=== PATIENT | female | born 1940 | race Caucasian/White ===

== ENCOUNTER → 2018-02-05 11:15 | Outpatient (CLI) | payer MEDICARE, OTHER, SELFPAY ==
[2018-02-05 12:32] LABS: Hemoglobin A1C% w Est Avg Glu 5.7 % (4.0-6.0)
[2018-02-05 12:33] LABS: HEMOLYSIS 21 (0-50); Potassium 4.9 mmol/L (3.4-5.1)
[2018-02-05 12:34] LABS: BUN Creatinine Ratio 30.8 (6-22); Blood Urea Nitrogen 37 mg/dL (7-17); Calcium 9.4 mg/dL (8.4-10.2); Carbon Dioxide 19 mmol/L (22-32); Chloride 108 mmol/L (98-107); Estimated Glomerular Filt Rate 43.8 mL/min (>60); Glucose 95 mg/dL (80-110); Sodium 139 mmol/L (137-145)
[2018-02-05 12:42] LABS: Add Manual Diff / Slide Review NO; Eosinophils Percent Auto 2.3 % (2-4); Hematocrit 35.5 % (36-46); Hemoglobin 11.7 g/dL (12.0-16.0); Lymphocytes Percent Auto 28.2 % (25-40); Mean Corpuscular HGB Conc 32.9 % (30-36); Mean Corpuscular Hemoglobin 29.6 PG (26-34); Mean Corpuscular Volume 89.9 fL (80-100); Monocytes Percent Auto 8.7 % (3-14); Neutrophils Absolute Auto 4900 /uL (3000-5900); Neutrophils Percent Auto 59.8 % (50-75); Platelet Count 237 X10^3/uL (150-400); Red Blood Cell Count 3.95 X10^6/uL (4.0-5.2); Red Cell Distribution Width 15.1 % (11.6-14.8); White Blood Cell Count 8.1 X10^3/uL (4.5-11.0)
== END ==
PROVIDERS: PCP Physician Assistant; Visit Provider Physician Assistant
DX: E11.9 Type 2 diabetes mellitus without complications (principal)
CPT/HCPCS: 36415; 80048; 83036; 85025

== ENCOUNTER → 2018-07-21 12:54 | Outpatient (CLI) | payer MEDICARE, OTHER, SELFPAY ==
[2018-07-21 13:14] LABS: Add Manual Diff / Slide Review NO; Basophils Percent Auto 1.2 % (0-2); Eosinophils Percent Auto 2.3 % (2-4); Hematocrit 35.2 % (36-46); Hemoglobin 11.4 g/dL (12.0-16.0); Lymphocytes Percent Auto 26.5 % (25-40); Mean Corpuscular HGB Conc 32.4 % (30-36); Mean Corpuscular Hemoglobin 28.9 PG (26-34); Mean Corpuscular Volume 89.2 fL (80-100); Monocytes Percent Auto 8.4 % (3-14); Neutrophils Absolute Auto 5600 /uL (3000-5900); Neutrophils Percent Auto 61.6 % (50-75); Platelet Count 253 X10^3/uL (150-400); Red Blood Cell Count 3.95 X10^6/uL (4.0-5.2); Red Cell Distribution Width 14.8 % (11.6-14.8); White Blood Cell Count 9.1 X10^3/uL (4.5-11.0)
[2018-07-21 13:27] LABS: Hemoglobin A1C% w Est Avg Glu 5.9 % (4.0-6.0)
[2018-07-21 14:02] LABS: Alanine Aminotransferase 21 IU/L (9-52); Albumin 4.4 g/dL (3.5-5.0); Albumin Globulin Ratio 1.2 (1.0-2.8); Alkaline Phosphatase 66 U/L (38-126); Aspartate Aminotransferase 21 IU/L (14-36); BUN Creatinine Ratio 23.1 (6-22); Bilirubin Total 0.3 mg/dL (0.2-1.3); Blood Urea Nitrogen 30 mg/dL (7-17); Calcium 9.5 mg/dL (8.4-10.2); Carbon Dioxide 21 mmol/L (22-32); Chloride 109 mmol/L (98-107); Cholesterol 252 mg/dL (140-199); Estimated Glomerular Filt Rate 39.9 mL/min (>60); Globulin 3.6 g/dL (1.7-4.1); Glucose 108 mg/dL (80-110); HDL Cholesterol 53 mg/dL (40-60); HEMOLYSIS < 15 (0-50); LDL Cholesterol Calculated 134 mg/dL (<100); Potassium 5.3 mmol/L (3.4-5.1); Sodium 144 mmol/L (137-145); Triglycerides 323 mg/dL (35-150)
== END ==
PROVIDERS: PCP Physician Assistant; Visit Provider Physician Assistant
DX: E78.5 Hyperlipidemia, unspecified (principal); I10 Essential (primary) hypertension; E11.9 Type 2 diabetes mellitus without complications
CPT/HCPCS: 36415; 80053; 80061; 83036; 85025

== ENCOUNTER → 2019-07-01 18:24 | Outpatient (ROUT) | payer MEDICARE, OTHER, SELFPAY ==
[2019-07-01 18:46] LABS: Alanine Aminotransferase 17 IU/L (<35); Albumin 4.2 g/dL (3.5-5.0); Albumin Globulin Ratio 1.4 (1.0-2.8); Alkaline Phosphatase 70 U/L (38-126); Aspartate Aminotransferase 21 IU/L (14-36); BUN Creatinine Ratio 26.7 (6-22); Bilirubin Total 0.4 mg/dL (0.2-1.3); Blood Urea Nitrogen 40 mg/dL (7-17); Carbon Dioxide 20 mmol/L (22-32); Chloride 112 mmol/L (98-107); Cholesterol 287 mg/dL (140-199); Estimated Glomerular Filt Rate 33.8 mL/min (>60); Globulin 3.1 g/dL (1.7-4.1); Glucose 102 mg/dL (80-110); HDL Cholesterol 49 mg/dL (40-60); HEMOLYSIS < 15 (0-50); LDL Cholesterol Calculated 174 mg/dL (<100); Potassium 4.9 mmol/L (3.4-5.1); Sodium 142 mmol/L (137-145); Total Protein 7.3 g/dL (6.3-8.2); Triglycerides 320 mg/dL (35-150)
[2019-07-01 18:47] LABS: Add Manual Diff / Slide Review NO; Basophils Absolute Auto 100 /uL (0-100); Eosinophils Absolute Auto 200 /uL (0-450); Eosinophils Percent Auto 2.4 % (2-4); Hematocrit 34.5 % (36-46); Hemoglobin 11.3 g/dL (12.0-16.0); Lymphocytes Absolute Auto 2400 /uL (1100-4500); Lymphocytes Percent Auto 26.5 % (25-40); Mean Corpuscular HGB Conc 32.8 % (30-36); Mean Corpuscular Hemoglobin 29.3 PG (26-34); Mean Corpuscular Volume 89.4 fL (80-100); Monocytes Absolute Auto 700 /uL (0-900); Monocytes Percent Auto 8.1 % (3-14); Neutrophils Absolute Auto 5700 /uL (1500-7000); Platelet Count 246 X10^3/uL (150-400); Red Blood Cell Count 3.86 X10^6/uL (4.0-5.2); Red Cell Distribution Width 14.9 % (11.6-14.8); White Blood Cell Count 9.1 X10^3/uL (4.5-11.0)
[2019-07-01 18:58] LABS: Erythrocyte Sedimentation Rate 65 MM/HR (0-20)
[2019-07-01 19:23] LABS: Hemoglobin A1C% w Est Avg Glu 5.7 % (4.0-6.0)
== END ==
PROVIDERS: PCP Physician Assistant; Visit Provider Physician Assistant
DX: E78.5 Hyperlipidemia, unspecified (principal); E11.9 Type 2 diabetes mellitus without complications; I10 Essential (primary) hypertension; M79.10 Myalgia, unspecified site
CPT/HCPCS: 80053; 80061; 83036; 85025; 85651; 86140

== ENCOUNTER → 2019-08-18 15:19 | Outpatient (ROUT) | payer MEDICARE, OTHER, SELFPAY ==
[2019-08-18 15:39] LABS: Add Manual Diff / Slide Review NO; Basophils Absolute Auto 100 /uL (0-100); Basophils Percent Auto 1.2 % (0-2); Eosinophils Absolute Auto 200 /uL (0-450); Eosinophils Percent Auto 2.1 % (2-4); Hematocrit 34.9 % (36-46); Hemoglobin 11.5 g/dL (12.0-16.0); Lymphocytes Absolute Auto 3000 /uL (1100-4500); Lymphocytes Percent Auto 29.4 % (25-40); Mean Corpuscular HGB Conc 33.1 % (30-36); Mean Corpuscular Hemoglobin 29.6 PG (26-34); Mean Corpuscular Volume 89.4 fL (80-100); Monocytes Absolute Auto 800 /uL (0-900); Monocytes Percent Auto 7.6 % (3-14); Neutrophils Absolute Auto 6000 /uL (1500-7000); Neutrophils Percent Auto 59.7 % (50-75); Platelet Count 241 X10^3/uL (150-400); Red Cell Distribution Width 15.1 % (11.6-14.8); White Blood Cell Count 10.1 X10^3/uL (4.5-11.0)
[2019-08-18 15:46] LABS: HEMOLYSIS < 15 (0-50); Iron 78 ug/dL (37-170)
[2019-08-18 15:47] LABS: Alanine Aminotransferase 18 IU/L (<35); Albumin 4.2 g/dL (3.5-5.0); Albumin Globulin Ratio 1.4 (1.0-2.8); Alkaline Phosphatase 69 U/L (38-126); Aspartate Aminotransferase 21 IU/L (14-36); Bilirubin Total 0.5 mg/dL (0.2-1.3); Blood Urea Nitrogen 35 mg/dL (7-17); Calcium 9.5 mg/dL (8.4-10.2); Carbon Dioxide 20 mmol/L (22-32); Chloride 108 mmol/L (98-107); Estimated Glomerular Filt Rate 36.6 mL/min (>60); Glucose 110 mg/dL (80-110); HEMOLYSIS < 15 (0-50); Potassium 4.5 mmol/L (3.4-5.1); Sodium 139 mmol/L (137-145); Total Protein 7.2 g/dL (6.3-8.2)
[2019-08-18 15:56] LABS: Percent Iron Saturation 28 % (15-50); Total Iron Binding Capacity 281 ug/dL (265-497); Transferrin 232 mg/dL (206-381)
[2019-08-18 16:22] LABS: Hemoglobin A1C% w Est Avg Glu 5.6 % (4.0-6.0)
== END ==
PROVIDERS: PCP Physician Assistant; Visit Provider Physician Assistant
DX: D50.8 Other iron deficiency anemias (principal); N17.9 Acute kidney failure, unspecified; I10 Essential (primary) hypertension; R42 Dizziness and giddiness; R11.0 Nausea; E11.9 Type 2 diabetes mellitus without complications
CPT/HCPCS: 80053; 82728; 83036; 83540; 83550; 85025

== ENCOUNTER → 2020-02-27 13:19 | Outpatient (CLI) | payer MEDICARE, OTHER, SELFPAY ==
[2020-02-27 14:36] LABS: Add Manual Diff / Slide Review NO; Basophils Absolute Auto 100 /uL (0-100); Basophils Percent Auto 0.8 % (0-2); Eosinophils Absolute Auto 200 /uL (0-450); Eosinophils Percent Auto 2.3 % (2-4); Hematocrit 34.2 % (36-46); Hemoglobin 11.3 g/dL (12.0-16.0); Lymphocytes Absolute Auto 2300 /uL (1100-4500); Lymphocytes Percent Auto 27.9 % (25-40); Mean Corpuscular Hemoglobin 29.2 PG (26-34); Mean Corpuscular Volume 88.6 fL (80-100); Monocytes Absolute Auto 700 /uL (0-900); Monocytes Percent Auto 7.9 % (3-14); Neutrophils Absolute Auto 5100 /uL (1500-7000); Neutrophils Percent Auto 61.1 % (50-75); Platelet Count 229 X10^3/uL (150-400); Red Blood Cell Count 3.86 X10^6/uL (4.0-5.2); Red Cell Distribution Width 14.5 % (11.6-14.8); White Blood Cell Count 8.4 X10^3/uL (4.5-11.0)
[2020-02-27 14:49] LABS: Hemoglobin A1C% w Est Avg Glu 5.6 % (4.0-6.0)
[2020-02-27 14:57] LABS: Alanine Aminotransferase 14 IU/L (<35); Albumin 4.2 g/dL (3.5-5.0); Albumin Globulin Ratio 1.4 (1.0-2.8); Alkaline Phosphatase 68 U/L (38-126); Aspartate Aminotransferase 18 IU/L (14-36); BUN Creatinine Ratio 21.7 (6-22); Bilirubin Total 0.5 mg/dL (0.2-1.3); Blood Urea Nitrogen 31 mg/dL (7-17); Calcium 9.7 mg/dL (8.4-10.2); Carbon Dioxide 16 mmol/L (22-32); Chloride 111 mmol/L (98-107); Cholesterol 275 mg/dL (140-199); Estimated Glomerular Filt Rate 35.6 mL/min (>60); Globulin 2.9 g/dL (1.7-4.1); Glucose 90 mg/dL (80-110); HDL Cholesterol 45 mg/dL (40-60); HEMOLYSIS < 15 (0-50); LDL Cholesterol Calculated 158 mg/dL (<100); Potassium 4.7 mmol/L (3.4-5.1); Sodium 137 mmol/L (137-145); Total Protein 7.1 g/dL (6.3-8.2); Triglycerides 359 mg/dL (35-150)
[2020-02-27 15:26] LABS: TSH w/ Reflex to FT4 0.14 uIU/mL (0.47-4.68)
[2020-02-27 15:56] LABS: Free T4, Direct Thyroxine 0.78 ng/dL (0.78-2.19)
== END ==
PROVIDERS: PCP Physician Assistant; Referring Provider Physician Assistant; Visit Provider Physician Assistant
DX: F32.9 Major depressive disorder, single episode, unspecified (principal); E11.9 Type 2 diabetes mellitus without complications; E78.2 Mixed hyperlipidemia; R53.83 Other fatigue
CPT/HCPCS: 36415; 80053; 80061; 83036; 84439; 84443; 85025

== ENCOUNTER → 2020-03-08 13:39 | Outpatient (CLI) | payer MEDICARE, OTHER, SELFPAY ==
[2020-03-08 15:54] LABS: TSH w/ Reflex to FT4 0.06 uIU/mL (0.47-4.68)
[2020-03-08 16:59] LABS: Free T4, Direct Thyroxine 0.84 ng/dL (0.78-2.19)
== END ==
PROVIDERS: PCP Physician Assistant; Referring Provider Physician Assistant; Visit Provider Physician Assistant
DX: R79.89 Other specified abnormal findings of blood chemistry (principal); R94.6 Abnormal results of thyroid function studies
CPT/HCPCS: 36415; 84439; 84443; 84481

== ENCOUNTER → 2020-03-26 15:34 | Outpatient (CLI) | payer MEDICARE, OTHER, SELFPAY ==
[2020-03-26 17:28] LABS: Free T3, Triiodothyronine Free 2.64 pg/mL (2.77-5.27)
[2020-03-26 17:42] LABS: TSH w/ Reflex to FT4 2.97 uIU/mL (0.47-4.68)
== END ==
PROVIDERS: PCP Physician Assistant; Referring Provider Physician Assistant; Visit Provider Physician Assistant
DX: R79.89 Other specified abnormal findings of blood chemistry (principal); I10 Essential (primary) hypertension
CPT/HCPCS: 36415; 84443; 84481

== ENCOUNTER → 2021-04-30 09:44 | Outpatient (CLI) | payer MEDICARE, OTHER, SELFPAY | PROVIDERS: PCP Physician Assistant; Referring Provider Physician Assistant; Visit Provider Physician Assistant | DX: M81.0 Age-related osteoporosis without current pathological fracture (principal) | CPT/HCPCS: 77080 ==

== ENCOUNTER → 2021-12-26 14:43 | Outpatient (CLI) | payer MEDICARE, OTHER, SELFPAY ==
[2021-12-26 15:45] LABS: Hematocrit 32.8 % (36-46); Hemoglobin 10.8 g/dL (12.0-16.0); Mean Corpuscular Volume 87.7 fL (80-100); Platelet Count 259 X10^3/uL (150-400); Red Blood Cell Count 3.74 X10^6/uL (4.0-5.2); Red Cell Distribution Width 15.3 % (11.6-14.8); White Blood Cell Count 9.3 X10^3/uL (4.5-11.0)
[2021-12-26 15:56] LABS: Hemoglobin A1C% w Est Avg Glu 5.9 % (4.0-6.0)
[2021-12-26 15:58] LABS: Alanine Aminotransferase 20 IU/L (<35); Albumin 4.4 g/dL (3.5-5.0); Albumin Globulin Ratio 1.2 (1.0-2.8); Alkaline Phosphatase 65 U/L (38-126); Aspartate Aminotransferase 23 IU/L (14-36); BUN Creatinine Ratio 19.9 (6-22); Bilirubin Total 0.4 mg/dL (0.2-1.3); Blood Urea Nitrogen 33 mg/dL (7-17); Calcium 8.9 mg/dL (8.4-10.2); Carbon Dioxide 17 mmol/L (22-32); Chloride 110 mmol/L (98-107); Estimated Glomerular Filt Rate 31 mL/min (>60); Globulin 3.6 g/dL (1.7-4.1); Glucose 109 mg/dL (80-110); HEMOLYSIS < 15 (0-50); Potassium 4.6 mmol/L (3.4-5.1); Sodium 140 mmol/L (137-145)
[2021-12-26 16:14] LABS: HEMOLYSIS < 15 (0-50); Iron 50 ug/dL (37-170)
[2021-12-26 16:25] LABS: Percent Iron Saturation 17 % (15-50); Total Iron Binding Capacity 291 ug/dL (265-497); Transferrin 233 mg/dL (206-381)
[2021-12-26 16:28] LABS: Ferritin 62 ng/mL (11-264)
[2021-12-26 16:46] LABS: TSH w/ Reflex to FT4 0.17 uIU/mL (0.47-4.68)
[2021-12-26 17:15] LABS: Free T4, Direct Thyroxine 1.09 ng/dL (0.78-2.19)
== END ==
PROVIDERS: PCP Internal Medicine; Referring Provider Internal Medicine; Visit Provider Internal Medicine
DX: D50.9 Iron deficiency anemia, unspecified (principal); E11.69 Type 2 diabetes mellitus with other specified complication; E78.2 Mixed hyperlipidemia; I10 Essential (primary) hypertension
CPT/HCPCS: 36415; 80053; 82728; 83036; 83540; 83550; 84439; 84443; 85027

== ENCOUNTER → 2022-07-31 15:32 | Outpatient (CLI) | payer MEDICARE, OTHER, SELFPAY ==
[2022-07-31 16:18] LABS: Hematocrit 34.4 % (36-46); Hemoglobin 11.3 g/dL (12.0-16.0); Mean Corpuscular HGB Conc 32.8 % (30-36); Mean Corpuscular Hemoglobin 28.7 PG (26-34); Mean Corpuscular Volume 87.5 fL (80-100); Platelet Count 239 X10^3/uL (150-400); Red Blood Cell Count 3.93 X10^6/uL (4.0-5.2); Red Cell Distribution Width 15.4 % (11.6-14.8); White Blood Cell Count 9.2 X10^3/uL (4.5-11.0)
[2022-07-31 16:28] LABS: Hemoglobin A1C% w Est Avg Glu 5.6 % (4.0-6.0)
[2022-07-31 16:41] LABS: Alanine Aminotransferase 24 IU/L (<35); Albumin 4.3 g/dL (3.5-5.0); Albumin Globulin Ratio 1.1 (1.0-2.8); Alkaline Phosphatase 78 U/L (38-126); Aspartate Aminotransferase 24 IU/L (14-36); Bilirubin Total 0.5 mg/dL (0.2-1.3); Blood Urea Nitrogen 30 mg/dL (7-17); Calcium 9.6 mg/dL (8.4-10.2); Carbon Dioxide 23 mmol/L (22-32); Chloride 106 mmol/L (98-107); Cholesterol 245 mg/dL (140-199); Estimated Glomerular Filt Rate 27 mL/min (>60); Globulin 3.9 g/dL (1.7-4.1); Glucose 103 mg/dL (80-110); HDL Cholesterol 70 mg/dL (40-60); HEMOLYSIS < 15 (0-50); LDL Cholesterol Calculated 122 mg/dL (<100); Potassium 5.3 mmol/L (3.4-5.1); Sodium 141 mmol/L (137-145); Total Protein 8.2 g/dL (6.3-8.2); Triglycerides 263 mg/dL (35-150)
[2022-07-31 16:51] LABS: HEMOLYSIS < 15 (0-50); Iron 54 ug/dL (37-170)
[2022-07-31 17:02] LABS: Percent Iron Saturation 16 % (15-50); Total Iron Binding Capacity 332 ug/dL (265-497); Transferrin 282 mg/dL (206-381)
[2022-07-31 17:14] LABS: Ferritin 46 ng/mL (11-264)
[2022-07-31 17:24] LABS: TSH w/ Reflex to FT4 2.54 uIU/mL (0.47-4.68)
[2022-07-31 18:33] LABS: Creatinine Urine Random 111.2 mg/dL
[2022-07-31 18:40] LABS: Microalbumi Creatinin Ratio Ur 45.8 ug/mg CR (<30); Microalbumin Urine Random 5.1 mg/dL (0-1.6)
[2022-08-01 07:17] LABS: Parathyroid Hormone Int 47 pg/mL (15-65)
== END ==
PROVIDERS: PCP Internal Medicine; Referring Provider Internal Medicine; Visit Provider Internal Medicine
DX: E11.69 Type 2 diabetes mellitus with other specified complication (principal); D50.9 Iron deficiency anemia, unspecified; E78.2 Mixed hyperlipidemia; N18.32 Chronic kidney disease, stage 3b; E78.5 Hyperlipidemia, unspecified; R79.89 Other specified abnormal findings of blood chemistry; E55.9 Vitamin D deficiency, unspecified
CPT/HCPCS: 36415; 80053; 80061; 82043; 82306; 82570; 82728; 83036; 83540; 83550; 83970; 84443; 85027

== ENCOUNTER → 2022-10-23 16:31 | Outpatient (CLI) | payer MEDICARE, OTHER, SELFPAY ==
--- NOTE | 2022-10-23 16:37 | DI.RAD.S_ITS ---
PROCEDURE: XR SHOULDER LT MIN 2V INDICATIONS: Bilateral shoulder pain TECHNIQUE: 3 views of the shoulder were acquired. COMPARISON: None. FINDINGS: Bones: No fractures or dislocations. No suspicious bony lesions. Visualized ribs appear intact. Glenohumeral and acromioclavicular joint space narrowing with associated osteophytosis, marked about the glenohumeral joint. Soft tissues: No suspicious soft tissue calcifications. IMPRESSION: Severe glenohumeral osteoarthritis. Dictated by: Carl Mccollum M.D. on 10/24/2022 at 9:29 Approved by: Carl Mccollum M.D. on 10/24/2022 at 9:30
--- NOTE | 2022-10-23 16:37 | DI.RAD.S_ITS ---
PROCEDURE: XR SHOULDER RT MIN 2V INDICATIONS: Bilateral shoulder pain TECHNIQUE: 3 views of the shoulder were acquired. COMPARISON: None. FINDINGS: Bones: No fractures or dislocations. No suspicious bony lesions. Visualized ribs appear intact. Glenohumeral and acromioclavicular joint space narrowing with associated osteophytosis. Soft tissues: No suspicious soft tissue calcifications. 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 Dictated by: Carl Mccollum M.D. on 10/24/2022 at 9:27 Approved by: Carl Mccollum M.D. on 10/24/2022 at 9:29
== END ==
PROVIDERS: PCP Internal Medicine; Referring Provider Internal Medicine; Visit Provider Internal Medicine
DX: M19.011 Primary osteoarthritis, right shoulder (principal); M19.012 Primary osteoarthritis, left shoulder; M25.511 Pain in right shoulder; M25.512 Pain in left shoulder
CPT/HCPCS: 73030

== ENCOUNTER → 2023-01-07 16:32 | Outpatient (CLI) | payer MEDICARE, OTHER, SELFPAY ==
[2023-01-07 18:05] LABS: BUN Creatinine Ratio 21.3 (6-22); Blood Urea Nitrogen 37 mg/dL (7-17); Calcium 9.2 mg/dL (8.4-10.2); Carbon Dioxide 18 mmol/L (22-32); Chloride 106 mmol/L (98-107); Estimated Glomerular Filt Rate 29 mL/min (>60); Glucose 100 mg/dL (80-110); HEMOLYSIS 20 (0-50); Potassium 4.9 mmol/L (3.4-5.1); Sodium 137 mmol/L (137-145)
[2023-01-08 06:04] LABS: x Labcorp Estim. Avg Glu (eAG) 126 mg/dL (.)
== END ==
PROVIDERS: PCP Internal Medicine; Referring Provider Internal Medicine; Visit Provider Internal Medicine
DX: E78.5 Hyperlipidemia, unspecified (principal); N18.32 Chronic kidney disease, stage 3b; E11.69 Type 2 diabetes mellitus with other specified complication
CPT/HCPCS: 36415; 80048; 83036

== ENCOUNTER → 2023-04-27 11:34 | Outpatient (CLI) | payer MEDICARE, OTHER, SELFPAY ==
[2023-04-27 12:05] LABS: Hemoglobin A1C% w Est Avg Glu 5.6 % (4.0-6.0)
[2023-04-27 12:14] LABS: BUN Creatinine Ratio 18.5 (6-22); Blood Urea Nitrogen 34 mg/dL (7-17); Calcium 8.8 mg/dL (8.4-10.2); Carbon Dioxide 18 mmol/L (22-32); Chloride 111 mmol/L (98-107); Estimated Glomerular Filt Rate 27 mL/min (>60); Glucose 117 mg/dL (80-110); HEMOLYSIS < 15 (0-50); Potassium 4.6 mmol/L (3.4-5.1); Sodium 139 mmol/L (137-145)
== END ==
PROVIDERS: PCP Internal Medicine; Referring Provider Internal Medicine; Visit Provider Internal Medicine
DX: E11.69 Type 2 diabetes mellitus with other specified complication (principal); E78.5 Hyperlipidemia, unspecified; I87.2 Venous insufficiency (chronic) (peripheral); N18.32 Chronic kidney disease, stage 3b
CPT/HCPCS: 36415; 80048; 83036

== ENCOUNTER → 2023-05-14 15:59 | Outpatient (CLI) | payer MEDICARE, OTHER, SELFPAY ==
--- NOTE | 2023-05-14 16:03 | DI.ECHO.S_ITS ---
[facility] +---------+ : : [id number] : : : : [id number] : : : : Phone: [phone]+ Echocardiogram Report + + :Name: YOGESH DEVRIES Study Date: 05/14/2023 Height: 66 in : :[facility] ReadingLocation: Weight: 251 lb : : Gender: Female BSA: 2.2 m2 : :: 1940 Age: 82 yrs BP: 154/85 mmHg: :Reason For Study: Congestive Heart Failure : :Ordering Physician: LAKSHMI, : :ISELA Performed By: Joan Zurita : :Referring: ISELA MARTINS : + + Interpretation Summary The left ventricle is normal in size. Left ventricular systolic function is normal. The ejection fraction is estimated to be 60-65%. There are no obvious focal wall motion abnormalities noted but poor endocardial definition reduces the sensitivity for the detection of such. Diastolic parameters suggest a relaxation abnormality of the left ventricle, consistent with probable normal filling pressures. The right ventricle is normal in size and function. The left atrial size is normal. There is no significant valvular heart disease. The aortic root is normal size. Procedure: A two-dimensional transthoracic echocardiogram with color flow and Doppler was performed. The study quality was technically difficult. There is no prior echocardiogram noted for this patient. A contrast injection of Definity was performed to improve assessment of LV function. The patient was in normal sinus rhythm during the exam. Left Ventricle: The left ventricle is normal in size. Left ventricular systolic function is normal. The ejection fraction is estimated to be 60-65%. There are no obvious focal wall motion abnormalities noted but poor endocardial definition reduces the sensitivity for the detection of such. Diastolic parameters suggest a relaxation abnormality of the left ventricle, consistent with probable normal filling pressures. Right Ventricle: The right ventricle is normal in size and function. Atria: The left atrial size is normal. Right atrial size is normal. There is no Doppler evidence for an interatrial shunt. Mitral Valve: The mitral valve is not well visualized. There is no mitral valve stenosis. There is no mitral regurgitation noted. Aortic Valve: The aortic valve is trileaflet. The aortic valve opens well. There is mild aortic valve sclerosis. There is no aortic valve stenosis. No aortic regurgitation is present. Tricuspid Valve: The tricuspid valve is normal. There is no tricuspid stenosis. There is trace tricuspid regurgitation. Pulmonic Valve: The pulmonic valve is not well visualized. There is no pulmonic valvular stenosis. There is no pulmonic valvular regurgitation. There is no significant valvular heart disease. Great Vessels: The aortic root is normal size. The ascending aorta is normal in size. The pulmonary artery is normal size. The IVC is of normal diameter and collapses greater than 50% with a sniff. This suggests a low right atrial pressure of 3 mm Hg. Pericardium/ Pleura There is no pericardial effusion. There is no pleural effusion. MMode/2D Measurements & Calculations LVIDd: 5.3 cm LVOT diam: 1.8 cm LVIDs: 3.6 cm Ao root diam: 3.1 cm FS: 32.1 % asc Aorta Diam: 3.4 cm IVSd: 0.90 cm LVPWd: 0.90 cm LV rendon. diameter/BSA (cm/m^2): 2.4 LV sys. diameter/BSA (cm/m^2): 1.6 LA A2 area: 13.7 cm2 RA long axis: 4.8 cm LA A4 area: 15.0 cm2 RA area: 10.9 cm2 LA length (vol): 5.0 cm RA vol: 21.3 ml LA vol: 35.0 ml RA : 9.7 ml/m2 LA vol index: 15.9 ml/m2 RVD1 (basal): 3.3 cm LVAd ap4: 30.4 cm2 LVAs ap4: 14.2 cm2 LVLs ap4: 4.9 cm LVAd ap2: 23.2 cm2 TAPSE_phl: 2.0 cm LVLd ap2: 6.5 cm LVAs ap2: 9.9 cm2 LVLs ap2: 4.7 cm Doppler Measurements & Calculations Ao V2 max: 146.0 cm/sec LVOT Max Luis M: 105.5 cm/sec Ao V2 mean: 98.0 cm/sec LV V1 max P.5 mmHg Ao max P.0 mmHg LV V1 VTI: 20.7 cm Ao mean P.0 mmHg CHERYLE(I,D): 1.9 cm2 Ao V2 VTI: 28.2 cm CHERYLE(V,D): 1.8 cm2 sev ratio: 0.74 CHERYLE indexed to BSA (cm^2/m^2): 0.85 MV E max luis m: 49.3 cm/sec PA V2 max: 99.5 cm/sec MV A max luis m: 87.8 cm/sec PA V2 mean: 71.2 cm/sec MV E/A: 0.56 PA mean P.0 mmHg Med Peak E' Luis M: 8.6 cm/sec PA pr(Accel): 31.3 mmHg E/E' med: 5.7 Lat Peak E' Luis M: 7.9 cm/sec E/E' lat: 6.2 E/e' average: 6.0 MV dec time: 0.32 sec SV(LVOT): 52.7 ml AV VR_phl: 0.73 CHERYLE(VTI)/BSA_phl: 0.85 Reading Physician:06:41 PM
== END ==
PROVIDERS: PCP Internal Medicine; Referring Provider Internal Medicine; Visit Provider Internal Medicine
DX: I50.9 Heart failure, unspecified (principal)
CPT/HCPCS: 93306; Q9957

== ENCOUNTER → 2023-06-02 16:34 | Outpatient (CLI) | payer MEDICARE, OTHER, SELFPAY ==
[2023-06-02 18:22] LABS: BUN Creatinine Ratio 20.8 (6-22); Blood Urea Nitrogen 47 mg/dL (7-17); Calcium 9.6 mg/dL (8.4-10.2); Carbon Dioxide 21 mmol/L (22-32); Chloride 105 mmol/L (98-107); Estimated Glomerular Filt Rate 21 mL/min (>60); Glucose 111 mg/dL (80-110); HEMOLYSIS < 15 (0-50); Potassium 3.5 mmol/L (3.4-5.1); Sodium 137 mmol/L (137-145)
[2023-06-02 20:02] LABS: Creatinine Urine Random 109.7 mg/dL
[2023-06-02 20:06] LABS: Microalbumi Creatinin Ratio Ur 6.3 ug/mg CR (<30); Microalbumin Urine Random 0.7 mg/dL (0-1.6)
== END ==
PROVIDERS: PCP Internal Medicine; Referring Provider Internal Medicine; Visit Provider Internal Medicine
DX: I87.2 Venous insufficiency (chronic) (peripheral) (principal); I10 Essential (primary) hypertension; E11.69 Type 2 diabetes mellitus with other specified complication; E78.5 Hyperlipidemia, unspecified; N18.32 Chronic kidney disease, stage 3b
CPT/HCPCS: 36415; 80048; 82043; 82570

== ENCOUNTER → 2023-06-02 17:42 | Outpatient (CLI) | payer MEDICARE, OTHER, SELFPAY ==
--- NOTE | 2023-06-02 17:47 | DI.RAD.S_ITS ---
PROCEDURE: XR CHEST 2V INDICATIONS: shortness of breath TECHNIQUE: 2 views of the chest were acquired. COMPARISON: [facility], , CHEST 2 VIEW, 11/25/2006, 11:45. FINDINGS: Surgical changes and devices: None. Lungs and pleura: Slight appearance of increased interstitial opacities. Mediastinum: Mediastinal contours are normal. Heart size is normal. Bones and chest wall: No suspicious bony abnormalities. Soft tissues appear unremarkable. IMPRESSION: Slight increased interstitial opacities suggestive of edema. However, interstitial pneumonia cannot be definitively excluded. Dictated by: Connie Terrazas M.D. on 06/03/2023 at 16:38 Approved by: Connie Terrazas M.D. on 06/03/2023 at 16:39
== END ==
PROVIDERS: PCP Internal Medicine; Referring Provider Internal Medicine; Visit Provider Internal Medicine
DX: I87.2 Venous insufficiency (chronic) (peripheral) (principal); R06.2 Wheezing; R06.02 Shortness of breath; I10 Essential (primary) hypertension; E11.69 Type 2 diabetes mellitus with other specified complication; E78.5 Hyperlipidemia, unspecified; N18.32 Chronic kidney disease, stage 3b
CPT/HCPCS: 36415; 71046; 80048; 82043; 82570

== ENCOUNTER → 2023-06-10 14:36 | Outpatient (CLI) | payer MEDICARE, OTHER, SELFPAY ==
[2023-06-10 17:47] LABS: BUN Creatinine Ratio 22.2 (6-22); Blood Urea Nitrogen 43 mg/dL (7-17); Calcium 9.6 mg/dL (8.4-10.2); Carbon Dioxide 17 mmol/L (22-32); Chloride 106 mmol/L (98-107); Estimated Glomerular Filt Rate 26 mL/min (>60); Glucose 97 mg/dL (80-110); HEMOLYSIS < 15 (0-50); Potassium 3.9 mmol/L (3.4-5.1); Sodium 137 mmol/L (137-145)
== END ==
PROVIDERS: PCP Internal Medicine; Referring Provider Internal Medicine; Visit Provider Internal Medicine
DX: I87.2 Venous insufficiency (chronic) (peripheral) (principal); N18.32 Chronic kidney disease, stage 3b; E78.2 Mixed hyperlipidemia; I10 Essential (primary) hypertension
CPT/HCPCS: 36415; 80048

== ENCOUNTER → 2023-06-16 13:27 | Outpatient (CLI) | payer MEDICARE, OTHER, SELFPAY | PROVIDERS: PCP Internal Medicine; Referring Provider Internal Medicine; Visit Provider Internal Medicine | DX: R06.02 Shortness of breath (principal); Z87.891 Personal history of nicotine dependence; J98.8 Other specified respiratory disorders | CPT/HCPCS: 94060; 94726; 94729 ==

== ENCOUNTER → 2023-07-20 13:24 | Outpatient (CLI) | payer MEDICARE, OTHER, SELFPAY ==
--- NOTE | 2023-07-20 13:26 | DI.RAD.S_ITS ---
PROCEDURE: XR ANKLE RT MIN 3V INDICATIONS: Right ankle pain TECHNIQUE: 3 views of the ankle were acquired. COMPARISON: None. FINDINGS: Bones: No fractures or dislocations. Ankle mortise is normally aligned. No suspicious bony lesions. Corticated ossicles adjacent to the medial malleolus are noted, likely sequelae of old injury. Moderate osteoarthritic changes at the tailor navicular joint and navicular cuneiform joint. Plantar calcaneal spurring. Soft tissues: Small tibiotalar joint effusion. Calcification at the Achilles tendon insertion. Diffuse soft tissue swelling. Vascular calcifications consistent with atherosclerosis. IMPRESSION: 1. No acute bony abnormality or significant effusion. Suspect old injury in the medial malleolus. 2. Moderate osteoarthritis. 3. Calcification at the Achilles tendon insertion to calcaneus, likely secondary to enthesopathy. 4. Plantar calcaneal spurring. 5. Marked soft tissue swelling. Dictated by: Derek Pepper M.D. on 07/20/2023 at 16:39 Approved by: Derek Pepper M.D. on 07/20/2023 at 16:44
== END ==
PROVIDERS: PCP Internal Medicine; Referring Provider Nurse Practitioner Family; Visit Provider Nurse Practitioner Family
DX: M19.071 Primary osteoarthritis, right ankle and foot (principal); M25.571 Pain in right ankle and joints of right foot; M77.31 Calcaneal spur, right foot; M79.89 Other specified soft tissue disorders
CPT/HCPCS: 73610

== ENCOUNTER → 2023-08-05 15:27 | Outpatient (CLI) | payer MEDICARE, OTHER, SELFPAY ==
[2023-08-05 16:53] LABS: Aspartate Aminotransferase 22 IU/L (14-36); BUN Creatinine Ratio 21.5 (6-22); Blood Urea Nitrogen 35 mg/dL (7-17); Calcium 9.3 mg/dL (8.4-10.2); Carbon Dioxide 15 mmol/L (22-32); Chloride 109 mmol/L (98-107); Cholesterol 247 mg/dL (140-199); Estimated Glomerular Filt Rate 32 mL/min (>60); Glucose 108 mg/dL (80-110); HDL Cholesterol 51 mg/dL (40-60); HEMOLYSIS 22 (0-50); LDL Cholesterol Calculated 132 mg/dL (<100); Potassium 4.8 mmol/L (3.4-5.1); Sodium 138 mmol/L (137-145); Triglycerides 319 mg/dL (35-150)
== END ==
PROVIDERS: PCP Internal Medicine; Referring Provider Internal Medicine; Visit Provider Internal Medicine
DX: E11.69 Type 2 diabetes mellitus with other specified complication (principal); E78.5 Hyperlipidemia, unspecified; E78.2 Mixed hyperlipidemia
CPT/HCPCS: 36415; 80048; 80061; 83036; 84450

== ENCOUNTER 2023-09-11 15:04 | Emergency (ER) | payer MEDICARE, OTHER, SELFPAY ==
[2023-09-11 15:09] VITALS: BP 180/79; PULSE 85; RESP 16; TEMP 36.6; O2SAT 99; BMI 39.5
--- NOTE | 2023-09-11 16:09 | ED.BACK ---
HPI - Back Pain/Injury <Loni Garcia PA-C - Last Filed: 09/11/23 18:17> General Chief Complaint: Back Pain/Injury Stated Complaint: back pain Time Seen by Provider: 09/11/23 16:06 History of Present Illness HPI Narrative: 82-year-old female with history of chronic low back pain, CKD stage 3, polyneuropathy, hyperlipidemia, hypertension and type 2 diabetes who ambulates with a walker at home presents with concern for left low back pain just above her left hip that has been intermittent for 9 days. Patient states she woke up Thursday morning last week and noticed the pain when she twisted or change position from sitting to standing. She states that the pain has been occurring again and again with these movements and seems to be specifically related to movement. She says it is a sharp pain that is in 1 location and does not radiate anywhere. The 1st time it happened and a couple of other times when it is happened she says the pain has been intense enough that she feels mildly nauseous briefly. She states that when it occurs it usually lasts for minutes at a time and if she changes her position and goes back to sitting or standing it usually resolves completely on its own. She does describe it as quite uncomfortable when it is occurring. She has tried using tramadol from a prescription she had from last year as well as Tylenol which have taken the edge off when the pain happens. She states she sees physical therapy for her right foot and they did a little bit to help and make recommendations regarding her back recently but came in today because she feels her back symptoms are simply not improving and it has been 9 days. She denies any injury or overuse that she can think of prior to the pain beginning. She thinks it is possible that she did something in her sleep before the pain began. She says it present she has absolutely no pain because she is sitting still. She states the pain is only there occasionally with movements. She denies dizziness, lightheadedness, chest pain, numbness or tingling of her lower extremities, new weakness or one-sided weakness, also denies dysuria, urgency, frequency of urination, diarrhea, constipation, nausea, vomiting or other. Related Data Home Medications Medication Instructions Recorded Confirmed fluticasone propionate 50 2 spray intranasal DAILY 09/14/18 08/05/23 mcg/actuation nasal spray,suspension (Flonase Allergy Relief) fexofenadine 180 mg tablet 180 mg PO DAILY PRN 06/23/19 08/05/23 (Alecia Allergy) Respironics dreamstation BIPAP Not Applicable 12/26/21 08/05/23 aspirin 81 mg tablet,delayed 81 mg PO DAILY 12/26/21 08/05/23 release blood sugar diagnostic [facility] 12/26/21 08/05/23 Ultra Test strips) cyclosporine 0.05 % eye drops in a 2 drp EYE-BOTH BID #0 ea 12/26/21 08/05/23 dropperette (Restasis) ferrous fumarate 325 mg (106 mg 325 mg PO DAILY 12/26/21 08/05/23 iron) tablet lancets 30 gauge [facility]a 12/26/21 08/05/23 Plus Lancet) olopatadine 0.2 % eye drops 1 drp EYE-BOTH DAILY 12/26/21 08/05/23 (Pataday) cholecalciferol (vitamin D3) 50 50 mcg PO DAILY 07/31/22 08/05/23 mcg (2,000 unit) capsule Previous Rx's Medication Instructions Recorded Parking Permit... #1 ea 01/07/23 hydroxyzine HCl 25 mg tablet 25 mg PO DAILY #30 tabs 04/27/23 losartan 50 mg tablet 50 mg PO DAILY #90 tabs 04/27/23 sertraline 50 mg tablet 25 mg (1/2 x 50 mg) PO DAILY 04/27/23 Depression #45 tabs empagliflozin 10 mg tablet 10 mg PO DAILY #90 tabs 07/27/23 (Jardiance) tramadol 50 mg tablet 50 mg PO Q6H PRN pain #30 tabs 09/09/23 baclofen 10 mg tablet 10 mg PO TID 7 days #21 tabs 09/11/23 lidocaine 5 % topical patch 1 patch topical DAILY 15 days #15 09/11/23 ea prednisone 20 mg tablet 40 mg (2 x 20 mg) PO DAILY 5 days 09/11/23 #10 tabs Allergies Allergy/AdvReac Type Severity Reaction Status Date / Time semaglutide AdvReac Mild Nausea Verified 09/11/23 15:13 colesevelam [COLESEVELAM] AdvReac Unknown MUSCLE PAIN Verified 09/11/23 15:13 levothyroxine sodium AdvReac Unknown ITCHING Verified 09/11/23 15:13 [LEVOTHYROXINE SODIUM] rosuvastatin [ROSUVASTATIN] AdvReac Unknown MUSCLE PAIN Verified 09/11/23 15:13 simvastatin [SIMVASTATIN] AdvReac Unknown MUSCLE PAIN Verified 09/11/23 15:13 Sulfa (Sulfonamide AdvReac Unknown RASH Verified 09/11/23 15:13 Antibiotics) [SULFA (SULFONAMIDE ANTIBIOTICS)] Review of Systems <Loni Garcia PA-C - Last Filed: 09/11/23 18:17> Review of Systems Narrative: See HPI Patient History <Loni Garcia PA-C - Last Filed: 09/11/23 18:17> Medical History Tendonitis, Achilles, right Venous (peripheral) insufficiency Chronic low back pain Do not resuscitate Chronic kidney disease, stage 3b Tendonitis of both rotator cuffs Polyneuropathy, unspecified Mixed hyperlipidemia Essential hypertension DM type 2 with diabetic dyslipidemia Nocturnal hypoxemia Iron deficiency anemia Depression Asthma Obstructive sleep apnea Obesity (BMI 30-39.9) Fatigue Excessive daytime sleepiness Insomnia Chronic seasonal allergic rhinitis Social History details: 2013, no children Smoking Status: Former smoker Smoking Status: Former smoker alcohol intake frequency: holidays/special occasions only Substance Use Type: does not use Exam <Loni Garcia PA-C - Last Filed: 09/11/23 18:17> Narrative Exam Narrative: GENERAL: [82] year old patient appears stated age. Well-developed patient, in mild distress. HEAD: Atraumatic. Normocephalic. EYES: Pupils equal round and reactive. Extraocular motions intact. No scleral icterus. No injection or drainage. ENT: Nose without bleeding, purulent drainage. Airway patent. NECK: Trachea midline. Non tender CARDIOVASCULAR: Regular rate and rhythm without murmurs, gallops, or rubs. RESPIRATORY: Clear to auscultation. Breath sounds equal bilaterally. No wheezes, rales, or rhonchi. GASTROINTESTINAL: Abdomen nondistended. EXTREMITIES: With active flexion and extension at the ankle knee and hip patient has no increased back pain. Bilateral lower extremity edema of the ankles and feet without pitting, chronic for patient, more prominent on the right also chronic for patient. BACK: There is no midline spinous process tenderness. There is no flank tenderness, mild lumbar paraspinal tenderness bilaterally. There is slight tenderness with palpation over the patient's area of pain at the left upper buttock inferior to the iliac crest. Tenderness can be reproduced by pressing firmly on the tissue/gluteus muscle. Otherwise Nontender without deformity or crepitance. No flank tenderness. NEURO: AOx3. SKIN: No rash or erythema of visible areas Initial Vital Signs Initial Vital Signs: Vital Signs Temperature 97.8 F 09/11/23 15:09 Pulse Rate 85 09/11/23 15:09 Respiratory Rate 16 09/11/23 15:09 Blood Pressure 180/79 H 09/11/23 15:09 Pulse Oximetry 99 09/11/23 15:09 Oxygen Delivery Method Room Air 09/11/23 15:09 <Delfino Prado DO - Last Filed: 09/11/23 18:17> Initial Vital Signs Initial Vital Signs: Vital Signs Temperature 97.8 F 09/11/23 15:09 Pulse Rate 85 09/11/23 15:09 Respiratory Rate 16 09/11/23 15:09 Blood Pressure 180/79 H 09/11/23 15:09 Pulse Oximetry 99 09/11/23 15:09 Oxygen Delivery Method Room Air 09/11/23 15:09 Course <Loni Garcia PA-C - Last Filed: 09/11/23 18:17> Orders Ordered: ED Orders 09/11/23 17:00 Urinalysis and Microscopic Stat Urine Culture Stat Vital Signs Vital signs: Vital Signs - 8 hr 09/11/23 15:09 09/11/23 18:03 Temperature 97.8 F Pulse Rate 85 79 Respiratory Rate 16 18 Blood Pressure 180/79 H 149/77 H Pulse Oximetry 99 100 Oxygen Delivery Method Room Air Room Air <DO Danilo Byrd Last Filed: 09/11/23 18:17> Orders Ordered: ED Orders 09/11/23 17:00 Urinalysis and Microscopic Stat Urine Culture Stat Vital Signs Vital signs: Vital Signs - 8 hr 09/11/23 15:09 09/11/23 18:03 Temperature 97.8 F Pulse Rate 85 79 Respiratory Rate 16 18 Blood Pressure 180/79 H 149/77 H Pulse Oximetry 99 100 Oxygen Delivery Method Room Air Room Air MDM - Back Pain/Injury <Loni Garcia PA-C - Last Filed: 09/11/23 18:17> Differential Diagnosis Differential diagnosis: Likely lumbar radiculopathy, strain of lumbar region and other (Nerve compression, UTI) Medical Records Attestation: I reviewed the patient's medical records. Lab Data Attestation: I reviewed the patient's lab results. Labs: Lab Results 09/11/23 Range/Units 17:00 Urine Color Yellow Urine Appearance Sl cloudy Urine pH 5.0 (4.5-8.0) Ur Specific [place] 1.025 (1.000-1.035) Urine Protein Trace H (Negative) Urine Glucose (UA) 2+ H (Negative) g/dL Urine Ketones Negative (NEGATIVE) Urine Occult Blood Negative (Negative) Urine Nitrate Negative (Negative) Urine Bilirubin Negative (NEGATIVE) Urine Urobilinogen 0.2 (0.2) E.U./dL Ur Leukocyte Esterase Negative (NEGATIVE) Urine RBC 0-1/hpf (0-5/HPF) Urine WBC 0-1/hpf (0-5/HPF) Ur Squamous Epith Cells 10-30 /hpf H (0-5/HPF) Urine Bacteria Moderate (10-30) H (None) Urine Mucus 1+ H (Negative) Urine Yeast 1-5/hpf H (None) Ur Culture Indicated? Specimen cultured Vol Urine Centrifuged 10ml (spun) Urine Dip Bedside Urine Glucose 500 mg/dl Bedside Urine Bilirubin - Negative Bedside Urine Ketone - Negative Urine Specific [place] 1.020 Bedside Urine Occult Blood - Negative Bedside Urine pH 6.0 Bedside Urine Protein - Negative Bedside Urine Urobilinogen - Negative Bedside Urine Nitrite - Negative Bedside Urine Leukocytes - Negative Esterase Treatment and disposition Shared decision making:: Shared decision-making was used in determining plan of care for this patient and plan for outpatient follow up MDM Narrative Medical decision making narrative: This is a quite well-appearing overweight 82-year-old female with history of obesity and type 2 diabetes, ambulates with walker, KIM, hyperlipidemia and essential hypertension who presents with concern for intermittent left low back pain. Pain is noted to be at the location of the left superior gluteus rosemary and is mildly reproducible with palpation. Pain is also quite intermittent and specifically occurs with certain movements such as twisting or going from sitting to standing. She has no current pain or complaints at this time. I am less suspicious for vascular etiology in this patient despite her risk factors given that her pain is intermittent and only associated with certain movements. A kidney stone is considered however she has no history of this and her pain has not changed in location for the past 9 days and again is specifically worse with movements. Urine is obtained for further evaluation however given no recent injury imaging is not obtained. Patient is noted to be hypertensive and discuss this with her she states this is ?not uncommon?. We discussed options including talking to her primary care provider about seeing physical therapy specifically for her back, a short course of steroid medication, possibly a trial of muscle relaxers prn, as well as lidocaine patches. Patient is agreeable to all of these and will reach out to her primary care provider about a referral for physical therapy. Counseled the patient if her symptoms are worsening or she has not improving in the next 2-3 weeks she may want to consider seeing an orthopedic control specialist for further evaluation and recommendations. Her urine dip was unremarkable except for some glucosuria. Urine microscopic does come back with moderate bacteria however she also has 10-30 squamous epithelial cells. Discuss this with the patient and think it is best to wait for culture given she has been asymptomatic I do not think her back symptoms are consistent with UTI. Did also advise the patient has some yeast was noted in her urine but again advise her this may be from an external source, but she denies symptoms associated with this. Patient was fairly hypertensive on her initial triage vitals however on recheck her vitals were LEs remarkable with a blood pressure of 149 systolic. Return precautions provided, follow-up plan discussed, all questions answered. <Delfino Prado, DO - Last Filed: 09/11/23 18:17> Lab Data Labs: Lab Results 09/11/23 Range/Units 17:00 Urine Color Yellow Urine Appearance Sl cloudy Urine pH 5.0 (4.5-8.0) Ur Specific [place] 1.025 (1.000-1.035) Urine Protein Trace H (Negative) Urine Glucose (UA) 2+ H (Negative) g/dL Urine Ketones Negative (NEGATIVE) Urine Occult Blood Negative (Negative) Urine Nitrate Negative (Negative) Urine Bilirubin Negative (NEGATIVE) Urine Urobilinogen 0.2 (0.2) E.U./dL Ur Leukocyte Esterase Negative (NEGATIVE) Urine RBC 0-1/hpf (0-5/HPF) Urine WBC 0-1/hpf (0-5/HPF) Ur Squamous Epith Cells 10-30 /hpf H (0-5/HPF) Urine Bacteria Moderate (10-30) H (None) Urine Mucus 1+ H (Negative) Urine Yeast 1-5/hpf H (None) Ur Culture Indicated? Specimen cultured Vol Urine Centrifuged 10ml (spun) Urine Dip Bedside Urine Glucose 500 mg/dl Bedside Urine Bilirubin - Negative Bedside Urine Ketone - Negative Urine Specific [place] 1.020 Bedside Urine Occult Blood - Negative Bedside Urine pH 6.0 Bedside Urine Protein - Negative Bedside Urine Urobilinogen - Negative Bedside Urine Nitrite - Negative Bedside Urine Leukocytes - Negative Esterase Discharge Plan Departure Patient Disposition: Home Clinical Impression: Acute left-sided low back pain Qualifiers: Sciatica presence: without sciatica Qualified Code(s): M54.50 - Low back pain, unspecified Activity Restrictions/Additional Instructions: *You have been diagnosed with acute left-sided low back pain *What to do: *Please continue to take your regular medications as directed. [3] New medication prescriptions sent to your pharmacy: [Baclofen muscle relaxer, lidocaine patches, prednisone steroid medication] [ ] New medication written as a paper prescription [ ] No new medications given *Please follow up with your primary care provider in 2-3 days, call for an appointment. Let them know you were seen in the Emergency Department and that we ask that you be seen in follow up. We will electronically transmit a record of today's note if your PCP is in our system. You came in today with concern for about 9 days of left low back pain that has been intermittent and sharp. We did check her urine today, your urine dip looked okay but we also performed a microscopic and urinalysis and was sent for culture. Your urine did show moderate amount of bacteria however there were also quite a few skin cells present suggesting that this was not a perfectly clean catch and sometimes the bacteria is actually from the outside of your body and not from your urine, because you have not had any symptoms of a urinary tract infection I think it is better to wait to see with the urine culture shows rather than placing on antibiotics today. I think it is possible that you have some nerve compression going on with associated inflammation, it is also possible that you did strain a muscle in the ER having some muscle spasming. After discussion of options for treating this in the short term, I did prescribe a short course of prednisone as well as a muscle relaxer and lidocaine patches. I recommend use caution with a muscle relaxer do not take it with alcohol or if you need to drive or operate any equipment. Given that use a walker it is also important to try this when you are going to be in a safe space at home and do not have to move around much to make sure that you deal with it okay you may want to try a half dose initially if needed but I did prescribe a low dose for you. If you do not need to take it as often as you can per prescription I recommend that you do not. You should take the prednisone for the full course and I anticipate that this will help with your symptoms. You can use the lidocaine patches up to 12 hours a day. I recommend he follow up closely with the primary care provider, ask them about getting a referral for physical therapy for her back issues and if you are not improving in 2-3 weeks you may want to consider seeing a control specialist/orthopedic doctor. Of course if your symptoms worsen or change please make sure you seek re-evaluation immediately. *If you do not have a primary care provider please contact the [facility] Resource line at [phone]. They will ask some questions about your medical history and help get you set up with a doctor in the community. *Return to Emergency Department if you should have any new, worsening or concerning symptoms, such as [fever greater than 101 F, shaking chills, worsening pain, persistent vomiting or other bothersome symptoms] Prescriptions: New prednisone 20 mg tablet 40 mg PO DAILY 5 Days Qty: 10 0RF lidocaine 5 % adhesive patch,medicated 1 patch topical DAILY 15 Days Qty: 15 1RF Rx Instructions: leave on most painful area for up to 12 hrs baclofen 10 mg tablet 10 mg PO TID 7 Days Qty: 21 0RF No Action cyclosporine [Restasis] 0.05 % dropperette 2 drp EYE-BOTH BID Qty: 0 hydroxyzine HCl 25 mg tablet 25 mg PO DAILY Qty: 30 5RF sertraline 50 mg tablet 25 mg PO DAILY Qty: 45 3RF Jardiance 10 mg tablet 10 mg PO DAILY Qty: 90 3RF tramadol 50 mg tablet 50 mg PO Q6H PRN (Reason: pain) Qty: 30 1RF (DME) lancets [OneTouch Delica Plus Lancet] 30 gauge misc See Rx Instructions .ROUTE .MEDSUPPLY Qty: 100 Patient Comments: USE DIRECTED FOR ONCE OR TWICE DAILY TESTING Rx Instructions: As directed (DME) OneTouch Ultra Test Strip See Rx Instructions .ROUTE .MEDSUPPLY Qty: 10 Patient Comments: USE 1 TO 2 TIMES A DAY FOR TESTING BLOOD SUGAR Rx Instructions: As directed aspirin 81 mg tablet,delayed release (DR/EC) 81 mg PO DAILY Respironics dreamstation BIPAP Not Applicable cholecalciferol (vitamin D3) 50 mcg (2,000 unit) capsule 50 mcg PO DAILY losartan 50 mg tablet 50 mg PO DAILY Qty: 90 3RF (DME) Parking Permit... See Rx Instructions .Route .MEDSUPPLY Qty: 1 0RF Rx Instructions: As directed fluticasone propionate [Flonase Allergy Relief] 50 mcg/actuation spray,suspension 2 spray NASAL DAILY ferrous fumarate 325 mg (106 mg iron) tablet 325 mg PO DAILY olopatadine [Pataday] 0.2 % drops 1 drp EYE-BOTH DAILY fexofenadine [Alecia Allergy] 180 mg tablet 180 mg PO DAILY PRN Referrals: Maury Cr MD [Primary Care Provider] - Stand Alone Forms: Patient Portal/API ED Sign-out <Delfino Prado DO - Last Filed: 09/11/23 18:17> Cosign ED Attending Cosignature Attestation: Dr Prado Co-Sign Statement: I was available for consultation during this patient's emergency department visit. This chart is signed by myself for administrative purposes only. I did not have direct contact with this patient during this visit. They were seen independently by the APC.
[2023-09-11 17:59] LABS: Appearance Urine UA SL CLOUDY; Bilirubin Urine UA NEGATIVE (NEGATIVE); Color Urine UA YELLOW; Glucose Urine UA 2+ g/dL (Negative); Ketones Urine UA NEGATIVE (NEGATIVE); Leukocyte Esterase Urine UA NEGATIVE (NEGATIVE); Nitrite Urine UA NEGATIVE (Negative); Occult Blood Urine UA NEGATIVE (Negative); Protein Urine UA TRACE (Negative); Specific Gravity Urine UA 1.025 (1.000-1.035); Urobilinogen Urine UA 0.2 E.U./dL (0.2)
[2023-09-11 18:03] VITALS: BP 149/77; PULSE 79; RESP 18; O2SAT 100
[2023-09-11 18:08] LABS: Bacteria Urine Moderate (10-30); Culture Indicated Urine Specimen Cultured; Mucus Urine 1+ (Negative); RBC Urine 0-1/HPF (0-5/HPF); Squamous Epithelial Cell Urine 10-30 /HPF (0-5/HPF); WBC Urine 0-1/HPF (0-5/HPF)
[2023-09-11 18:11] LABS: Urine Volume 10mL (spun)
== END 2023-09-11 18:15 | disposition home or self-care (01) ==
PROVIDERS: Emergency Provider Student in an Organized Health Care Education/Training Program; PCP Internal Medicine
DX: M54.50 Low back pain, unspecified (principal)
CPT/HCPCS: 81001; 81003; 87086; 99282

== ENCOUNTER → 2023-09-23 16:31 | Outpatient (CLI) | payer MEDICARE, OTHER, SELFPAY ==
[2023-09-23 19:07] LABS: Vitamin B12 > 1000 pg/mL (239-931)
== END ==
LOC: LAB 16:32
PROVIDERS: PCP Internal Medicine; Referring Provider Physician Assistant; Visit Provider Physician Assistant
DX: N18.32 Chronic kidney disease, stage 3b (principal); E55.9 Vitamin D deficiency, unspecified; R26.89 Other abnormalities of gait and mobility
CPT/HCPCS: 36415; 82306; 82607

== ENCOUNTER → 2023-10-12 14:36 | Outpatient (CLI) | payer MEDICARE, OTHER, SELFPAY ==
[2023-10-12 15:16] LABS: Add Manual Diff / Slide Review NO; Basophils Absolute Auto 100 /uL (0-100); Basophils Percent Auto 0.7 % (0-2); Eosinophils Absolute Auto 200 /uL (0-450); Eosinophils Percent Auto 2.6 % (2-4); Hematocrit 35.2 % (36-46); Hemoglobin 11.5 g/dL (12.0-16.0); Lymphocytes Absolute Auto 1500 /uL (1100-4500); Lymphocytes Percent Auto 20.4 % (25-40); Mean Corpuscular HGB Conc 32.7 % (30-36); Mean Corpuscular Hemoglobin 28.6 PG (26-34); Mean Corpuscular Volume 87.4 fL (80-100); Monocytes Absolute Auto 600 /uL (0-900); Monocytes Percent Auto 7.6 % (3-14); Neutrophils Absolute Auto 5200 /uL (1500-7000); Neutrophils Percent Auto 68.7 % (50-75); Platelet Count 249 X10^3/uL (150-400); Red Blood Cell Count 4.02 X10^6/uL (4.0-5.2); Red Cell Distribution Width 15.5 % (11.6-14.8); White Blood Cell Count 7.6 X10^3/uL (4.5-11.0)
[2023-10-12 15:38] LABS: Alanine Aminotransferase 16 IU/L (<35); Albumin 4.1 g/dL (3.5-5.0); Albumin Globulin Ratio 1.2 (1.0-2.8); Alkaline Phosphatase 67 U/L (38-126); Aspartate Aminotransferase 20 IU/L (14-36); BUN Creatinine Ratio 26.6 (6-22); Bilirubin Total 0.5 mg/dL (0.2-1.3); Blood Urea Nitrogen 46 mg/dL (7-17); Calcium 9.4 mg/dL (8.4-10.2); Carbon Dioxide 16 mmol/L (22-32); Chloride 108 mmol/L (98-107); Estimated Glomerular Filt Rate 30 mL/min (>60); Globulin 3.3 g/dL (1.7-4.1); Glucose 114 mg/dL (80-110); HEMOLYSIS < 15 (0-50); Potassium 4.5 mmol/L (3.4-5.1); Sodium 138 mmol/L (137-145); Total Protein 7.4 g/dL (6.3-8.2)
[2023-10-12 16:07] LABS: TSH w/ Reflex to FT4 3.84 uIU/mL (0.47-4.68)
[2023-10-14 14:26] LABS: HEMOLYSIS < 15 (0-50); Iron 57 ug/dL (37-170)
[2023-10-14 14:38] LABS: Percent Iron Saturation 19 % (15-50); Total Iron Binding Capacity 296 ug/dL (265-497); Transferrin 240 mg/dL (206-381)
== END ==
PROVIDERS: PCP Family Medicine; Referring Provider Family Medicine; Visit Provider Family Medicine
DX: Z86.39 Personal history of other endocrine, nutritional and metabolic disease (principal); R06.09 Other forms of dyspnea; Z86.2 Personal history of diseases of the blood and blood-forming organs and certain disorders involving the immune mechanism; D50.9 Iron deficiency anemia, unspecified; E11.69 Type 2 diabetes mellitus with other specified complication; E78.5 Hyperlipidemia, unspecified; R26.89 Other abnormalities of gait and mobility; I87.2 Venous insufficiency (chronic) (peripheral); I10 Essential (primary) hypertension; N18.32 Chronic kidney disease, stage 3b; E78.2 Mixed hyperlipidemia
CPT/HCPCS: 36415; 80053; 83540; 83550; 84443; 85025

== ENCOUNTER → 2023-10-27 16:04 | Outpatient (CLI) | payer MEDICARE, OTHER, SELFPAY ==
--- NOTE | 2023-10-27 | DI.CT.S_ITS ---
PROCEDURE: CT ANGIO CHEST PE PROTOCOL INDICATIONS: Shortness of breath TECHNIQUE: After the administration of intravenous contrast, 2 mm thick sections acquired from the pulmonary apices to the posterior costophrenic angles. 3-dimensional maximum intensity projection (MIP) coronal and sagittal reformats were then acquired through the thorax. For radiation dose reduction, the following was used: automated exposure control, adjustment of mA and/or kV according to patient size. COMPARISON: None. FINDINGS: Image quality: Diagnostic. Pulmonary arteries: There is a tiny pulmonary embolus present in the posterior basal segment right lower lobe pulmonary artery on image 90/4. There is also a question of possible antral basal segment right lower lobe pulmonary embolus, as well. No central pulmonary emboli. Central pulmonary arterial tree is not dilated. Lower Neck: No enlarged lymph nodes. Thyroid: No thyroid nodules which require sonographic follow up, per consensus guidelines. Axillae: No enlarged lymph nodes. Chest Wall: Unremarkable. Bones: Unremarkable. Lungs and Pleura: No pneumothorax or pleural effusions. Bibasilar dependent change. 6 mm pleural based pulmonary nodule, extreme right lung base, image 191/5. Heart: Heart size is normal. No pericardial effusion. Normal RV LV ratio. Thoracic Vessels: No aortic aneurysm. Mediastinum and María: No enlarged lymph nodes. Esophagus: No wall thickening. No hiatal hernia. Upper Abdomen: Gallbladder surgically absent. IMPRESSION: 1. There is a definite small peripheral right lower lobe pulmonary embolus and a question of a 2nd small peripheral right lower lobe pulmonary embolus. 2. No central pulmonary emboli, no dilated pulmonary arterial tree, normal heart size. 3. No acute pulmonary process 4. 6 mm right basilar pulmonary nodule. Consider six-month follow-up CT chest. Dictated by: Coleman Sheikh M.D. on 10/27/2023 at 16:59 Approved by: Coleman Sheikh M.D. on 10/27/2023 at 17:04
== END ==
LOC: CT 16:05
PROVIDERS: PCP Family Medicine; Referring Provider Orthopaedic Surgery Foot and Ankle Surgery; Visit Provider Orthopaedic Surgery Foot and Ankle Surgery
DX: I26.99 Other pulmonary embolism without acute cor pulmonale (principal); R06.02 Shortness of breath; R91.1 Solitary pulmonary nodule
CPT/HCPCS: 71275; Q9967

== ENCOUNTER → 2023-11-23 16:20 | Outpatient (CLI) | payer MEDICARE, OTHER, SELFPAY ==
--- NOTE | 2023-11-23 16:21 | DI.US.S_ITS ---
PROCEDURE: US PERIPH VENOUS LOW EXTREM BI INDICATIONS: Incidental PE TECHNIQUE: Real-time imaging, as well as color and pulse Doppler interrogation, were performed of the deep veins of both legs from the inguinal ligament to the popliteal fossa, with documentation of the visualized calf veins. COMPARISON: [facility], CT, CT ANGIO CHEST PE PROTOCOL, 10/27/2023, 16:08. FINDINGS: Right: Right-sided deep venous thrombosis can be seen involving the femoral vein from its mid to distal portion. Left: The common femoral, femoral, popliteal, and the visualized calf veins are normally compressible, and free of intraluminal thrombus. Color and pulse Doppler demonstrate normal phasic intravascular flow. There is normal augmentation response to distal compression maneuver. IMPRESSION: Right-sided deep venous thrombosis seen involving the mid to distal femoral vein. No left-sided deep venous thrombosis can be seen. Dictated by: Kain Hassan M.D. on 11/23/2023 at 16:21 Approved by: Kain Hassan M.D. on 11/23/2023 at 16:22
== END ==
LOC: US 16:20
PROVIDERS: PCP Family Medicine; Referring Provider Family Medicine; Visit Provider Family Medicine
DX: I82.411 Acute embolism and thrombosis of right femoral vein (principal); I26.99 Other pulmonary embolism without acute cor pulmonale
CPT/HCPCS: 93970

== ENCOUNTER → 2024-04-25 15:42 | Outpatient (CLI) | payer MEDICARE, OTHER, SELFPAY ==
[2024-04-25 17:47] LABS: BUN Creatinine Ratio 25.4 (6-22); Blood Urea Nitrogen 46 mg/dL (7-17); Calcium 8.6 mg/dL (8.4-10.2); Carbon Dioxide 16 mmol/L (22-32); Chloride 110 mmol/L (98-107); Estimated Glomerular Filt Rate 28 mL/min (>60); Glucose 102 mg/dL (80-110); HEMOLYSIS 37 (0-50); Potassium 4.8 mmol/L (3.4-5.1); Sodium 135 mmol/L (137-145)
[2024-04-25 17:54] LABS: NT-proBNP (BNP-Adult 18+) 458 pg/mL (<450)
== END ==
PROVIDERS: PCP Family Medicine; Referring Provider Internal Medicine; Visit Provider Internal Medicine
DX: I50.32 Chronic diastolic (congestive) heart failure (principal)
CPT/HCPCS: 36415; 80048; 83880

== ENCOUNTER → 2024-05-06 | Outpatient (CLI) | payer MEDICARE, OTHER, SELFPAY ==
--- NOTE | 2024-05-10 09:34 | DI.NM.S_ITS ---
DATE OF SERVICE: 05/06/2024 NUCLEAR CARDIOLOGY MYOCARDIAL PERFUSION STUDY PROCEDURE: Pharmacologic vasodilator stress and rest myocardial perfusion imaging with gating to assess ejection fraction and regional wall motion. ORDERING PROVIDER: Natanael Jimenez MD INDICATIONS: The patient is an 83-year-old morbidly obese female with exertional dyspnea and concern for possible diastolic heart failure with lower extremity edema. CARDIAC STRESS: Per protocol, 0.4 mg of regadenoson was infused with a normal hemodynamic response. With this, she had minimal dyspnea but no chest discomfort. Her resting ECG shows sinus rhythm with low QRS voltage but no ST-segment abnormalities. There are no significant ST- segment shifts or arrhythmia with stress. Per protocol, 25.2 mCi of technetium-99m Myoview was injected and she was imaged 15 minutes later using a gated SPECT acquisition protocol. Three days later, while at rest, she was injected with 24.5 mCi of technetium-99m Myoview was imaged 15 minutes later, using a gated SPECT acquisition protocol. FINDINGS: 1. Raw data. There is fairly good myocardial tracer uptake although with obvious breast attenuation artifact. The lung/heart ratio is normal at 0.18 with a normal TID ratio of 0.77. 2. Quantitated gated SPECT: Post-stress ejection fraction is estimated at 89% without any focal wall motion abnormality. The resting ejection fraction is 79% with a normal resting end-diastolic volume of 89 mL. The right ventricle grossly appears normal in size and systolic function. 3. Myocardial perfusion imaging: Post-stress supine images show a normal myocardial perfusion pattern without any concerning perfusion defects, supported by normal perfusion imaging in the prone position. The resting images show an identical perfusion pattern without any areas of improvement. IMPRESSION: 1. Normal myocardial perfusion study. 2. No evidence of myocardial ischemia or previous myocardial infarction. 3. Normal left ventricular size and systolic function without focal wall motion abnormality. 4. No angina or ECG evidence of ischemia with pharmacologic vasodilator stress. MéndezAzalea nava - TAYLER/yoni/RASHAAD doc#: [id number]/job#: [id number] dd: 05/09/2024 17:14:00 dt: 05/09/2024 22:06:00 DICTATING MD/COPIES TO: Leonardo Berry MD; Natanael Jimenez MD COPIES MNE: STERO;
== END ==
PROVIDERS: PCP Family Medicine; Referring Provider Internal Medicine; Visit Provider Internal Medicine
DX: I50.32 Chronic diastolic (congestive) heart failure (principal)
CPT/HCPCS: 78452; 93017; A9502; J2785

== ENCOUNTER → 2024-08-01 13:43 | Outpatient (CLI) | payer MEDICARE, OTHER, SELFPAY ==
[2024-08-01 14:14] LABS: Alanine Aminotransferase 18 IU/L (<35); Albumin 4.2 g/dL (3.5-5.0); Albumin Globulin Ratio 1.4 (1.0-2.8); Alkaline Phosphatase 71 U/L (38-126); Aspartate Aminotransferase 20 IU/L (14-36); Bilirubin Total 0.5 mg/dL (0.2-1.3); Blood Urea Nitrogen 29 mg/dL (7-17); Calcium 9.2 mg/dL (8.4-10.2); Carbon Dioxide 21 mmol/L (22-32); Chloride 109 mmol/L (98-107); Estimated Glomerular Filt Rate 30 mL/min (>60); Glucose 112 mg/dL (80-110); HEMOLYSIS < 15 (0-50); Potassium 4.7 mmol/L (3.4-5.1); Sodium 140 mmol/L (137-145); Total Protein 7.2 g/dL (6.3-8.2)
== END ==
LOC: LAB 13:45
PROVIDERS: PCP Family Medicine; Referring Provider Internal Medicine; Visit Provider Internal Medicine
DX: E11.69 Type 2 diabetes mellitus with other specified complication (principal); E78.5 Hyperlipidemia, unspecified; I13.0 Hypertensive heart and chronic kidney disease with heart failure and stage 1 through stage 4 chronic kidney disease, or unspecified chronic kidney disease; N18.4 Chronic kidney disease, stage 4 (severe); I50.32 Chronic diastolic (congestive) heart failure
CPT/HCPCS: 36415; 80053

== ENCOUNTER → 2024-09-09 11:58 | Outpatient (CLI) | payer MEDICARE, OTHER, SELFPAY ==
--- NOTE | 2024-09-09 12:00 | DI.US.S_ITS ---
PROCEDURE: US RENAL COMPLETE INDICATIONS: STAGE 4 CHRONIC KIDNEY DISEASE TECHNIQUE: Real-time scanning was performed of the kidneys and bladder, with image documentation. COMPARISON: [facility], , RENAL COMPLETE, 04/01/2016, 11:47. FINDINGS: Evaluation limited due to overlying bowel gas and body habitus. Kidneys: Kidneys are normal in size. Right kidney measures 9.6 cm long; left kidney measures 9.4 cm long. Right renal cortical thickness is 1.1 cm; left renal cortical thickness is 1.0 cm. Renal cortical echotexture is normal. No hydronephrosis or nephrolithiasis. No suspicious solid mass lesions. Bladder: Pre-void bladder volume is 133 mL. Post-void residual is 0 mL. Pre-void images demonstrate no intraluminal masses or stones. On pre-void images, only the right ureteral jets is noted with color Doppler interrogation. (Of note, ureteral jets may not be detectable in up to 25% of cases due to insufficient differences in specific gravity between ureteral and bladder urine). Miscellaneous: No free pelvic fluid. IMPRESSION: No acute sonographic abnormality of the kidneys or bladder. Dictated by: Jerome Perez M.D. on 09/11/2024 at 16:15 Approved by: Jerome Perez M.D. on 09/11/2024 at 16:16
== END ==
PROVIDERS: PCP Family Medicine; Referring Provider Family Medicine; Visit Provider Family Medicine
DX: N18.4 Chronic kidney disease, stage 4 (severe) (principal)
CPT/HCPCS: 76770

== ENCOUNTER → 2024-12-01 14:54 | Outpatient (CLI) | payer MEDICARE, OTHER, SELFPAY ==
[2024-12-01 15:38] LABS: Hematocrit 38.8 % (36-46); Hemoglobin 12.6 g/dL (12.0-16.0)
[2024-12-01 15:54] LABS: BUN Creatinine Ratio 23.4 (6-22); Blood Urea Nitrogen 44 mg/dL (7-17); Calcium 9.3 mg/dL (8.4-10.2); Carbon Dioxide 19 mmol/L (22-32); Chloride 108 mmol/L (98-107); Estimated Glomerular Filt Rate 26 mL/min (>60); Glucose 114 mg/dL (80-110); HEMOLYSIS < 15 (0-50); Potassium 5.1 mmol/L (3.4-5.1); Sodium 141 mmol/L (137-145)
[2024-12-02 17:28] LABS: Creatinine Urine Random 92.09 mg/dL; Protein (Total) Urine Random 16 mg/dL (0-12); Protein Creatinine Ratio Urine 0.17 GRAM/24H
== END ==
PROVIDERS: PCP Family Medicine; Referring Provider Student in an Organized Health Care Education/Training Program; Visit Provider Student in an Organized Health Care Education/Training Program
DX: N05.9 Unspecified nephritic syndrome with unspecified morphologic changes (principal); D70.9 Neutropenia, unspecified; D63.1 Anemia in chronic kidney disease; R80.9 Proteinuria, unspecified
CPT/HCPCS: 36415; 80048; 82570; 84156; 85014; 85018

== ENCOUNTER → 2025-01-17 13:32 | Outpatient (CLI) | payer MEDICARE, OTHER, SELFPAY ==
[2025-01-17 14:09] LABS: Hematocrit 38.1 % (36-46); Hemoglobin 12.4 g/dL (12.0-16.0)
[2025-01-17 14:37] LABS: BUN Creatinine Ratio 25.6 (6-22); Blood Urea Nitrogen 43 mg/dL (7-17); Calcium 9.4 mg/dL (8.4-10.2); Carbon Dioxide 20 mmol/L (22-32); Chloride 105 mmol/L (98-107); Estimated Glomerular Filt Rate 30 mL/min (>60); Glucose 111 mg/dL (70-99); HEMOLYSIS < 15 (0-50); Phosphorous 4.1 mg/dL (2.8-4.1); Sodium 136 mmol/L (137-145)
[2025-01-17 16:33] LABS: Creatinine Urine Random 86.41 mg/dL; Protein (Total) Urine Random 14 mg/dL (0-12); Protein Creatinine Ratio Urine 0.16 GRAM/24H
== END ==
LOC: LAB 13:34
PROVIDERS: PCP Family Medicine; Referring Provider Student in an Organized Health Care Education/Training Program; Visit Provider Student in an Organized Health Care Education/Training Program
DX: D70.9 Neutropenia, unspecified (principal); E83.30 Disorder of phosphorus metabolism, unspecified; N05.9 Unspecified nephritic syndrome with unspecified morphologic changes; D63.1 Anemia in chronic kidney disease; N25.81 Secondary hyperparathyroidism of renal origin; R80.9 Proteinuria, unspecified
CPT/HCPCS: 36415; 80048; 82570; 83970; 84100; 84156; 85014; 85018

== ENCOUNTER → 2025-02-28 14:38 | Outpatient (CLI) | payer MEDICARE, OTHER, SELFPAY ==
[2025-02-28 15:20] LABS: Blood Urea Nitrogen 58 mg/dL (7-17); Calcium 9.2 mg/dL (8.4-10.2); Carbon Dioxide 16 mmol/L (22-32); Chloride 105 mmol/L (98-107); Estimated Glomerular Filt Rate 24 mL/min (>60); Glucose 136 mg/dL (70-99); HEMOLYSIS < 15 (0-50); Potassium 4.9 mmol/L (3.4-5.1); Sodium 136 mmol/L (137-145)
[2025-02-28 15:23] LABS: Protein (Total) Urine Random 15 mg/dL (0-12)
[2025-02-28 15:25] LABS: Protein Creatinine Ratio Urine 4.68 GRAM/24H
== END ==
PROVIDERS: PCP Family Medicine; Referring Provider Family Medicine; Visit Provider Student in an Organized Health Care Education/Training Program
DX: N05.9 Unspecified nephritic syndrome with unspecified morphologic changes (principal); N25.81 Secondary hyperparathyroidism of renal origin; R80.9 Proteinuria, unspecified
CPT/HCPCS: 36415; 80048; 82570; 83970; 84156

== ENCOUNTER → 2025-07-10 16:04 | Outpatient (CLI) | payer MEDICARE, OTHER, SELFPAY ==
[2025-07-10 16:58] LABS: Hemoglobin A1C% w Est Avg Glu 5.8 % (4.0-6.0)
== END ==
PROVIDERS: PCP Family Medicine; Referring Provider Family Medicine; Visit Provider Family Medicine
DX: E11.69 Type 2 diabetes mellitus with other specified complication (principal); E78.5 Hyperlipidemia, unspecified
CPT/HCPCS: 36415; 83036

== ENCOUNTER → 2025-07-25 13:52 | Outpatient (CLI) | payer MEDICARE, OTHER, SELFPAY ==
[2025-07-25 14:25] LABS: Hematocrit 38.9 % (36-46); Hemoglobin 12.8 g/dL (12.0-16.0)
[2025-07-25 14:42] LABS: Blood Urea Nitrogen 27 mg/dL (7-17); Calcium 9.5 mg/dL (8.4-10.2); Carbon Dioxide 23 mmol/L (22-32); Chloride 105 mmol/L (98-107); Estimated Glomerular Filt Rate 34 mL/min (>60); Glucose 115 mg/dL (70-99); HEMOLYSIS < 15 (0-50); Potassium 4.7 mmol/L (3.4-5.1); Sodium 140 mmol/L (137-145)
[2025-07-26 17:46] LABS: Protein (Total) Urine Random 21 mg/dL (0-12); Protein Creatinine Ratio Urine 0.35 GRAM/24H
== END ==
PROVIDERS: PCP Family Medicine; Referring Provider Student in an Organized Health Care Education/Training Program; Visit Provider Student in an Organized Health Care Education/Training Program
DX: D70.9 Neutropenia, unspecified (principal); D63.1 Anemia in chronic kidney disease; N05.9 Unspecified nephritic syndrome with unspecified morphologic changes; N25.81 Secondary hyperparathyroidism of renal origin; R80.9 Proteinuria, unspecified
CPT/HCPCS: 36415; 80048; 82570; 83970; 84156; 85014; 85018